=== PATIENT | female | born 1980 | race Caucasian/White ===

== ENCOUNTER 2020-10-16 09:37 | Day surgery (SDC) | payer BC ==
--- NOTE | 2020-10-16 08:53 | HP ---
DATE OF SURGERY: 10/16/2020 HISTORY OF PRESENT ILLNESS: The patient is a 40 year-old with infection left breast and persist, failed to heal with antibiotic treatment. She desires excision of ruptured cyst or of other etiology is unclear. PAST MEDICAL HISTORY: Diabetes, hypertension, hypercholesterolemia. PAST SURGICAL HISTORY: Laparoscopic cholecystectomy. section. Abscess of other breast in 2008. MEDICATIONS: Vascepa, Lexapro, Farxiga, hydrochlorothiazide, Lopid, Ozempic, Bactrim. ALLERGIES: ASPIRIN. PENICILLIN. FAMILY HISTORY: Heart disease, hypertension, diabetes. SOCIAL HISTORY: Half pack per day smoker, occasional alcohol use denies abuse. REVIEW OF SYSTEMS: Fourteen systems reviewed. No chest pain or palpitations. Other systems negative or noncontributory as above and per preadmission questionnaire. PHYSICAL EXAMINATION: GENERAL: No acute distress. HEENT: Sclerae nonicteric. NECK: No JVD. CHEST: Equal excursion, nonlabored breathing. CVS: Regular rate and rhythm. ABDOMEN: Soft. No peritoneal signs. EXTREMITIES: No significant edema. NEURO: Alert, oriented, moving extremities symmetrically. PSYCH: Appropriate mood and affect. IMPRESSION: Left breast ruptured cyst site or other etiology. I feel she would benefit from excision. The patient did have bilateral mammogram and targeted ultrasound with question whether of ruptured cyst site, will proceed with excisional biopsy left breast ruptured cyst site or abscess as an outpatient.
[~2020-10-16 09:37] MED LIST: Lactated Ringers 1,000 ML IV ONE; Sensorcaine 0.25% 10 ML ONE; XYLOCAINE 1% HCL 20 ML MDV ONE
[2020-10-16] MEDS ORDERED: CEFAZOLIN 2 GM-D5W BAG** 2 GM/50 ML ML IV SCH (10:00)
[2020-10-16] MEDS ORDERED: CEFAZOLIN 2 GM-D5W BAG** 2 GM/50 ML ML IV ONE (10:02)
[2020-10-16] MEDS ORDERED: Lactated Ringers 1,000 ML IV ONE (10:03)
[2020-10-16] MEDS: Lactated Ringers 1,000 ML IV SCH (10:08)
[2020-10-16] MEDS ORDERED: DIPRIVAN 200 MG/20 ML IV ONE ×2 (11:31→12:17)
[2020-10-16] MEDS ORDERED: Versed 2 MG/2 ML Injection ONE (11:32)
[2020-10-16 13:48] VITALS: BP 115/63; PULSE 64; O2SAT 100
--- NOTE | 2020-10-17 11:01 | OP ---
SURGERY DATE/TIME: 10/16/2020 1146 PREOPERATIVE DIAGNOSIS: Persistent infection left breast, question ruptured cyst site, failed conservative management, need for excision. POSTOPERATIVE DIAGNOSIS: Persistent infection left breast, question ruptured cyst site, failed conservative management, need for excision. PROCEDURE: Incisional biopsy left breast ruptured cyst site approximately 3.5 cm with margins. SURGEON: Dr. Km Baez. ANESTHESIA: General. ESTIMATED BLOOD LOSS: Minimal. INDICATIONS: As noted above. Risks and benefits explained in detail and not limited to and consent obtained. Site had been marked and confirmed with the patient in the preoperative holding area. DESCRIPTION OF PROCEDURE AND FINDINGS: The patient is taken to the operating room. MAC anesthesia introduced. Prepped and draped in usual sterile fashion. After official time out and no disagreement with the planned procedure, in field pattern around the indurated area beneath the nipple/areolar area about 7:00 position. Incising spinal shape fashion and excision taken down to more normal appearing skin. Dissection carried down to subcutaneous tissue. It was then evident that there was much larger granulation cavity extending up towards the lower half of the nipple/areolar area. The specimen was about 3.5 cm, passed off for pathology. Again, nipple/areolar area granulation and/or material was carefully peeled off the nipple/areolar complex with some pinpoint cautery for hemostasis. Again, this was a ruptured cyst site. There was no visible cyst wall material left. Copious amount of irrigation irrigating clear. The specimen sent off for pathology. The wound was then closed with interrupted 3-0 Vicryl in the subcu and deep dermis. Skin closed with 4-0 Vicryl leaving an opening in the center portion where 0.25 inch Iodoform packing was directed up towards the cavity area to be gradually advanced out over the next few days, 0.5 cm a day until out. Steri-Strips and sterile dressing applied. The patient tolerated the procedure well. There were no immediate complications. Findings discussed with the family out in the waiting area.
== END 2020-10-16 13:35 | disposition home or self-care (01) ==
LOC: SDC 09:37
PROVIDERS: ATTEND Surgery
DX: N60.82 Other benign mammary dysplasias of left breast (principal); E11.9 Type 2 diabetes mellitus without complications; I10 Essential (primary) hypertension; Z79.899 Other long term (current) drug therapy
CPT/HCPCS: 82947; 84703; J0690; J2250; J2704

== ENCOUNTER 2024-02-10 20:31 | Emergency (ER) | payer OTHER ==
[2024-02-10 20:58] VITALS: TEMP 98.4
[2024-02-10 21:45] LABS: BASOPHIL % 0.8 % (0.1-1.2); Eosinophil % 8.4 % (0.7-5.8); Eosinophil (Absolute #) 1.04 x10^3/uL (0.04-0.36); Hematocrit 41.4 % (34.1-44.9); Hemoglobin 14.1 g/dL (11.2-15.7); IMMATURE GRAN # 0.03 x10^3u/L (0.001-0.031); IMMATURE GRAN % 0.2 % (0.001-0.429); Lymphocyte (Absolute #) 2.23 x10^3/uL (1.18-3.74); Lymphocytes % 18.1 % (19.3-51.7); Mean Cell Volume 89.8 fL (79.4-94.8); Mean Corpuscular Hemoglobin 30.6 pg (25.6-32.2); Mean Corpuscular Hgb Concent. 34.1 g/dL (32.2-35.5); Mean Platelet Volume 10.7 fL (9.4-12.3); Monocyte (Absolute #) 0.73 x10^3/uL (0.24-0.86); Monocytes % 5.9 % (4.7-12.5); Neutrophil % 66.6 % (34.0-71.1); Platelet Count 259 x10^3/uL (182-369); Red Blood Count 4.61 x10^6/uL (3.93-5.22); Red Cell Distribution Width 12.6 % (11.7-14.4); White Blood Count 12.3 x10^3/uL (3.98-10.04)
--- NOTE | 2024-02-10 21:48 | ERPHSYRPT ---
- History of Present Illness Time Seen by Provider: 02/10/24 20:45 Source: patient Exam Limitations: no limitations Patient Subjective Stated Complaint: pt states she was treated for bronchitis but has been getting wore agan since with increased cough and shortness of breath Triage Nursing Assessment: pt alert and oriented, answers questions approp. pt ambulates into room with steady gait noted. respirations nonlabored. skin warm and dry. exp wheezes noted bilat Physician History: 43-year-old female presents to emergency department for evaluation of cough and shortness of breath. Patient states that symptoms started over a week ago. Patient states she was diagnosed with a sinusitis. Patient was treated with azithromycin and oral steroids. No significant improvement. Patient states her symptoms are now involving her lungs. No associated chest pain. No nausea vomiting or diaphoresis. Symptoms are mild to moderate in intensity. No specific worsening or improving factors. Patient voices no other complaints or concerns at this time. Portions of this note were created with voice recognition technology. There may be grammatical, spelling, punctuation or sound alike errors Timing/Duration: day(s) Severity: moderate (Week) Modifying Factors: Improves With: nothing Associated Symptoms: denies symptoms Allergies/Adverse Reactions: aspirin Allergy (Unknown, Verified 02/10/24 20:34) Penicillins Allergy (Unknown, Verified 02/10/24 20:34) Home Medications: Dapagliflozin Propanediol [Farxiga] 10 mg PO DAILY 10/10/20 [History] Gemfibrozil [Lopid] 600 mg PO DAILY 10/10/20 [History] Hydrochlorothiazide 25 mg [hydroDIURIL 25 MG] 25 mg PO DAILY 10/10/20 [History] Losartan Potassium 50 mg [Cozaar 50 MG] 50 mg PO DAILY 10/10/20 [History] Multivitamin 1 each PO DAILY 10/10/20 [History] Semaglutide [Ozempic] 0.5 mg SQ WEEKLY 10/10/20 [History] icosapent ethyL [Vascepa] 1 gm PO BID 10/10/20 [History] Escitalopram Oxalate [Lexapro] 20 mg PO DAILY 10/16/20 [History] Hx Tetanus, Diphtheria Vaccination/Date Given: Yes Hx Influenza Vaccination/Date Given: No Hx Pneumococcal Vaccination/Date Given: No Immunizations Up to Date: No Travel Risk - International Travel Have you traveled outside of the country in past 3 weeks: No - Emerging Infectious Disease Are you exhibiting symptoms associated with any current EIDs: Yes Symptoms: Cough: New Onset, Headaches/Body Aches/ - Review of Systems Constitutional: No Symptoms, No Fever, No Chills Eyes: No Symptoms Ears, Nose, & Throat: No Symptoms Respiratory: No Symptoms, No Cough, No Dyspnea Cardiac: No Symptoms, No Chest Pain, No Edema, No Syncope Abdominal/Gastrointestinal: No Symptoms, No Abdominal Pain, No Nausea, No Vomiting, No Diarrhea Genitourinary Symptoms: No Symptoms, No Dysuria Musculoskeletal: No Symptoms, No Back Pain, No Neck Pain Skin: No Symptoms, No Rash Neurological: No Symptoms, No Dizziness, No Focal Weakness, No Sensory Changes Psychological: No Symptoms Endocrine: No Symptoms Hematologic/Lymphatic: No Symptoms Immunological/Allergic: No Symptoms All Other Systems: Reviewed and Negative - Past Medical History Pertinent Past Medical History: Yes Neurological History: No Pertinent History ENT History: No Pertinent History Cardiac History: High Cholesterol, Hypertension Respiratory History: No Pertinent History Endocrine Medical History: Diabetes Type II Musculoskeletal History: No Pertinent History GI Medical History: Gallbladder Disease History: No Pertinent History Psycho-Social History: No Pertinent History Female Reproductive Disorders: Other Other Medical History: hx breast abcess,clog milk duct with mastitis - Past Surgical History Past Surgical History: Yes Neuro Surgical History: No Pertinent History Cardiac: No Pertinent History Respiratory: No Pertinent History Gastrointestinal: Cholecystectomy Genitourinary: No Pertinent History Musculoskeletal: No Pertinent History Female Surgical History: Section Other Surgical History: bilat breast abcess excision. - Female History Hx Last Menstrual Period: 3-4 wks Hx Now: No - Social History Smoking Status: Current every day smoker How long have you smoked: 20 Exposure to second hand smoke: No Drug Use: none - Social Determinants of Health Will the patient participate in the screening: Yes Do you worry about a steady place to live?: No Do you have any problems with any of the following?: No known problems In the past 12 months,have you had to go without utilities?: No Transportation Issues: No Has anyone in your support network made you feel unsafe?: No Have you or anyone in your house had to go without enough: No - Nursing Vital Signs Nursing Vital Signs: Initial Vital Signs Temperature 98.4 F 02/10/24 20:34 Pulse Rate 98 H 02/10/24 20:34 Respiratory Rate 18 02/10/24 20:34 Blood Pressure 146/86 02/10/24 20:34 O2 Sat by Pulse Oximetry 97 02/10/24 20:34 Pain Scale Pain Intensity 5 - Physical Exam General Appearance: no apparent distress, alert Eye Exam: PERRL/EOMI, eyes nml inspection Ears, Nose, Throat Exam: normal ENT inspection, TMs normal, pharynx normal, moist mucous membranes Neck Exam: normal inspection, non-tender, supple, full range of motion Respiratory Exam: normal breath sounds, airway intact, diminished breath sounds, rhonchi, No respiratory distress Cardiovascular Exam: regular rate/rhythm, normal heart sounds, normal peripheral pulses Gastrointestinal/Abdomen Exam: soft, normal bowel sounds, No tenderness, No mass Back Exam: normal inspection, normal range of motion, No CVA tenderness, No vertebral tenderness Extremity Exam: normal inspection, normal range of motion, pelvis stable Neurologic Exam: alert, oriented x 3, cooperative, normal mood/affect, sensation nml, No motor deficits Skin Exam: normal color, warm, dry, No rash Lymphatic Exam: No adenopathy SpO2 Interpretation: normal SpO2: 94 O2 Delivery: Room Air - Course Nursing assessment & vital signs reviewed: Yes EKG Interpreted by Me: RATE (74), Sinus Rhythm, NORMAL AXIS, NORMAL INTERVALS, NORMAL QRS - Radiology Exams Chest X-ray Interpretation: Teleradiologist Report (Right lower lobe opacity) Ordered Tests: Active Orders 24 hr Category Date Time Status Supervisor Fitting STAT Care 02/10/24 21:15 Active EKG-ER Only STAT Care 02/10/24 21:14 Active IV Insertion STAT Care 02/10/24 21:14 Active Pulse Oximetry (ED) STAT Care 02/10/24 21:14 Active CHEST 1 VIEW (PORTABLE) Stat Exams 02/10/24 22:08 Completed BLOOD CULTURE Stat Lab 02/10/24 21:30 Received CBC W DIFF Stat Lab 02/10/24 21:21 Completed CMP Stat Lab 02/10/24 21:21 Completed CULTURE,URINE Stat Lab 02/10/24 23:00 Received D-DIMER QUANTITATIVE Stat Lab 02/10/24 21:21 Completed HCG QUALITATIVE, SERUM Stat Lab 02/10/24 21:30 Completed Lactic Acid Stat Lab 02/10/24 21:45 Completed MAGNESIUM Stat Lab 02/10/24 21:21 Completed MONO SCREEN Stat Lab 02/10/24 21:30 Completed TROPONIN Q4H Lab 02/10/24 21:21 Completed TROPONIN Q4H Lab 02/11/24 01:15 Ordered TROPONIN Q4H Lab 02/11/24 05:15 Ordered UA W/RFX UR CULTURE Stat Lab 02/10/24 23:00 Completed Respiratory Therapy Assessment DAILY RT 02/11/24 00:07 Active Medication Summary Discontinued Medications Generic Name Dose Route Start Last Admin Trade Name Freq PRN Reason Stop Dose Admin Albuterol/Ipratropium 3 ml 02/10/24 23:43 02/11/24 00:03 Ipratropium/Albuterol Sulfate 3 Ml Ampul.Neb IH 02/10/24 23:44 3 ml STAT ONE Administration Albuterol/Ipratropium Confirm 02/10/24 23:57 Ipratropium/Albuterol Sulfate 3 Ml Ampul.Neb Administered 02/10/24 23:58 Dose 3 ml IH .STK-MED ONE Methylprednisolone Sodium 0 mg 02/10/24 23:43 02/11/24 00:00 Succinate 125 mg/ Sterile IV 02/10/24 23:44 125 mg Water 2 ml STAT ONE Administration Methylprednisolone Sodium Succinate Confirm 02/10/24 23:49 Methylprednis Sod Succ 125 Mg/2 Ml Vial Administered 02/10/24 23:50 Dose 125 mg .ROUTE .STK-MED ONE Methylprednisolone Sodium Succinate Confirm 02/10/24 23:59 Methylprednis Sod Succ 125 Mg/2 Ml Vial Administered 02/11/24 00:00 Dose 125 mg .ROUTE .STK-MED ONE Sterile Water Confirm 02/10/24 23:49 Water For Injection,Sterile 10 Ml Vial Administered 02/10/24 23:50 Dose 10 ml IJ .STK-MED ONE Sterile Water Confirm 02/10/24 23:59 Water For Injection,Sterile 10 Ml Vial Administered 02/11/24 00:00 Dose 10 ml IJ .STK-MED ONE Lab/Rad Data: Laboratory Result Diagrams 02/10/24 21:21 02/10/24 21:21 Laboratory Results 02/10/24 02/10/24 02/10/24 Range/Units 23:00 21:45 21:30 WBC (3.98-10.04) x10^3/uL RBC (3.93-5.22) x10^6/uL Hgb (11.2-15.7) g/dL Hct (34.1-44.9) % MCV (79.4-94.8) fL MCH (25.6-32.2) pg MCHC (32.2-35.5) g/dL RDW (11.7-14.4) % Plt Count (182-369) x10^3/uL MPV (9.4-12.3) fL Gran % (34.0-71.1) % Immature Gran % (Auto) (0.001-0.429) % Nucleat RBC Rel Count (0.00-0.2) % Eos # (Auto) (0.04-0.36) x10^3/uL Immature Gran # (Auto) (0.001-0.031) x10^3u/L Absolute Lymphs (auto) (1.18-3.74) x10^3/uL Absolute Monos (auto) (0.24-0.86) x10^3/uL Absolute Nucleated RBC (0.00-0.012) x10^3u/L Lymphocytes % (19.3-51.7) % Monocytes % (4.7-12.5) % Eosinophils % (0.7-5.8) % Basophils % (0.1-1.2) % Absolute Granulocytes (1.56-6.13) x10^3/uL Basophils # (0.01-0.08) x10^3/uL D-Dimer (0.0-0.50) mg/L Sodium (135-145) mmol/L Potassium (3.5-5.1) mmol/L Chloride (98-107) mmol/L Carbon Dioxide (22-30) mmol/L Anion Gap (5-15) MEQ/L BUN (7-17) mg/dL Creatinine (0.52-1.04) mg/dL Estimated GFR ML/MIN Glucose (74-106) mg/dL Lactic Acid 1.9 (0.4-2.0) Calcium (8.4-10.2) mg/dL Magnesium (1.6-2.3) mg/dL Total Bilirubin (0.2-1.3) mg/dL AST (14-36) U/L ALT (0-35) U/L Alkaline Phosphatase (38-126) U/L Troponin I (0.000-0.033) ng/mL Serum Total Protein (6.3-8.2) g/dL Albumin (3.5-5.0) g/dL Serum HCG, Qual NEGATIVE (NEGATIVE) Urine Color Yellow (Yellow) Urine Appearance Clear (Clear) Urine pH 5.0 (4.6-8.0) Ur Specific [place] 1.020 (1.005-1.030) Urine Protein Negative (Negative) Urine Glucose (UA) Negative (Negative) mg/dL Urine Ketones Trace A (Negative) Urine Blood Moderate A (Negative) Urine Nitrite Negative (Negative) Urine Bilirubin Negative (Negative) Urine Urobilinogen 0.2 (0.2) mg/dL Ur Leukocyte Esterase Trace A (Negative) U Hyaline Cast (Auto) NONE SEEN (0-2) /LPF Urine Microscopic RBC 6-10 A (0-5) /HPF Urine Microscopic WBC 3-5 (0-5) /HPF Ur Epithelial Cells Rare (None Seen) /HPF Urine Bacteria Rare A (None Seen) /HPF Urine Culture Reflexed YES (NO) Monoscreen NEGATIVE (NEGATIVE) Influenza Type A Ag (NEGATIVE) Influenza Type B Ag (NEGATIVE) RSV (PCR) (NEGATIVE) SARS-CoV-2 (PCR) (NEGATIVE) Group A Strep Antibody (NEGATIVE) 02/10/24 02/10/24 02/10/24 Range/Units 21:25 21:21 21:21 WBC (3.98-10.04) x10^3/uL RBC (3.93-5.22) x10^6/uL Hgb (11.2-15.7) g/dL Hct (34.1-44.9) % MCV (79.4-94.8) fL MCH (25.6-32.2) pg MCHC (32.2-35.5) g/dL RDW (11.7-14.4) % Plt Count (182-369) x10^3/uL MPV (9.4-12.3) fL Gran % (34.0-71.1) % Immature Gran % (Auto) (0.001-0.429) % Nucleat RBC Rel Count (0.00-0.2) % Eos # (Auto) (0.04-0.36) x10^3/uL Immature Gran # (Auto) (0.001-0.031) x10^3u/L Absolute Lymphs (auto) (1.18-3.74) x10^3/uL Absolute Monos (auto) (0.24-0.86) x10^3/uL Absolute Nucleated RBC (0.00-0.012) x10^3u/L Lymphocytes % (19.3-51.7) % Monocytes % (4.7-12.5) % Eosinophils % (0.7-5.8) % Basophils % (0.1-1.2) % Absolute Granulocytes (1.56-6.13) x10^3/uL Basophils # (0.01-0.08) x10^3/uL D-Dimer 0.30 (0.0-0.50) mg/L Sodium (135-145) mmol/L Potassium (3.5-5.1) mmol/L Chloride (98-107) mmol/L Carbon Dioxide (22-30) mmol/L Anion Gap (5-15) MEQ/L BUN (7-17) mg/dL Creatinine (0.52-1.04) mg/dL Estimated GFR ML/MIN Glucose (74-106) mg/dL Lactic Acid (0.4-2.0) Calcium (8.4-10.2) mg/dL Magnesium (1.6-2.3) mg/dL Total Bilirubin (0.2-1.3) mg/dL AST (14-36) U/L ALT (0-35) U/L Alkaline Phosphatase (38-126) U/L Troponin I < 0.012 (0.000-0.033) ng/mL Serum Total Protein (6.3-8.2) g/dL Albumin (3.5-5.0) g/dL Serum HCG, Qual (NEGATIVE) Urine Color (Yellow) Urine Appearance (Clear) Urine pH (4.6-8.0) Ur Specific [place] (1.005-1.030) Urine Protein (Negative) Urine Glucose (UA) (Negative) mg/dL Urine Ketones (Negative) Urine Blood (Negative) Urine Nitrite (Negative) Urine Bilirubin (Negative) Urine Urobilinogen (0.2) mg/dL Ur Leukocyte Esterase (Negative) U Hyaline Cast (Auto) (0-2) /LPF Urine Microscopic RBC (0-5) /HPF Urine Microscopic WBC (0-5) /HPF Ur Epithelial Cells (None Seen) /HPF Urine Bacteria (None Seen) /HPF Urine Culture Reflexed (NO) Monoscreen (NEGATIVE) Influenza Type A Ag NEGATIVE (NEGATIVE) Influenza Type B Ag NEGATIVE (NEGATIVE) RSV (PCR) NEGATIVE (NEGATIVE) SARS-CoV-2 (PCR) NEGATIVE (NEGATIVE) Group A Strep Antibody NOT DETECTED (NEGATIVE) 02/10/24 02/10/24 Range/Units 21:21 21:21 WBC 12.3 H (3.98-10.04) x10^3/uL RBC 4.61 (3.93-5.22) x10^6/uL Hgb 14.1 (11.2-15.7) g/dL Hct 41.4 (34.1-44.9) % MCV 89.8 (79.4-94.8) fL MCH 30.6 (25.6-32.2) pg MCHC 34.1 (32.2-35.5) g/dL RDW 12.6 (11.7-14.4) % Plt Count 259 (182-369) x10^3/uL MPV 10.7 (9.4-12.3) fL Gran % 66.6 (34.0-71.1) % Immature Gran % (Auto) 0.2 (0.001-0.429) % Nucleat RBC Rel Count 0.0 (0.00-0.2) % Eos # (Auto) 1.04 H (0.04-0.36) x10^3/uL Immature Gran # (Auto) 0.03 (0.001-0.031) x10^3u/L Absolute Lymphs (auto) 2.23 (1.18-3.74) x10^3/uL Absolute Monos (auto) 0.73 (0.24-0.86) x10^3/uL Absolute Nucleated RBC 0.00 (0.00-0.012) x10^3u/L Lymphocytes % 18.1 L (19.3-51.7) % Monocytes % 5.9 (4.7-12.5) % Eosinophils % 8.4 H (0.7-5.8) % Basophils % 0.8 (0.1-1.2) % Absolute Granulocytes 8.20 H (1.56-6.13) x10^3/uL Basophils # 0.10 H (0.01-0.08) x10^3/uL D-Dimer (0.0-0.50) mg/L Sodium 141 (135-145) mmol/L Potassium 4.4 (3.5-5.1) mmol/L Chloride 106 (98-107) mmol/L Carbon Dioxide 25 (22-30) mmol/L Anion Gap 14.4 (5-15) MEQ/L BUN 8 (7-17) mg/dL Creatinine 0.78 (0.52-1.04) mg/dL Estimated GFR 96.6 ML/MIN Glucose 95 (74-106) mg/dL Lactic Acid (0.4-2.0) Calcium 10.1 (8.4-10.2) mg/dL Magnesium 1.7 (1.6-2.3) mg/dL Total Bilirubin 0.40 (0.2-1.3) mg/dL AST 31 (14-36) U/L ALT 24 (0-35) U/L Alkaline Phosphatase 63 (38-126) U/L Troponin I (0.000-0.033) ng/mL Serum Total Protein 7.2 (6.3-8.2) g/dL Albumin 4.4 (3.5-5.0) g/dL Serum HCG, Qual (NEGATIVE) Urine Color (Yellow) Urine Appearance (Clear) Urine pH (4.6-8.0) Ur Specific [place] (1.005-1.030) Urine Protein (Negative) Urine Glucose (UA) (Negative) mg/dL Urine Ketones (Negative) Urine Blood (Negative) Urine Nitrite (Negative) Urine Bilirubin (Negative) Urine Urobilinogen (0.2) mg/dL Ur Leukocyte Esterase (Negative) U Hyaline Cast (Auto) (0-2) /LPF Urine Microscopic RBC (0-5) /HPF Urine Microscopic WBC (0-5) /HPF Ur Epithelial Cells (None Seen) /HPF Urine Bacteria (None Seen) /HPF Urine Culture Reflexed (NO) Monoscreen (NEGATIVE) Influenza Type A Ag (NEGATIVE) Influenza Type B Ag (NEGATIVE) RSV (PCR) (NEGATIVE) SARS-CoV-2 (PCR) (NEGATIVE) Group A Strep Antibody (NEGATIVE) - Progress Progress: improved Progress Note: 43-year-old female presents to our ED for evaluation of a cough. Patient completed a course of antibiotics Z-Arpit and steroids, Medrol Dosepak. No improvement. Patient is a diabetic. Laboratory workup reveals a leukocytosis. D-dimer negative. No indication for CTA chest. Patient received Solu-Medrol and a DuoNeb. Symptoms improved. Patient states she feels much better. Chest x-ray ordered. There is a prolonged wait for the chest x-ray. Patient requested discharge as she did not want to wait. Patient's daughter and family are at bedside. Patient will be discharged home. A prescription for prednisone and albuterol inhaler provided. We advised patient that we will keep an eye out for the chest x-ray. If there is a significant finding we will call her at home and call in a prescription/antibiotic if indicated. Vital stable. We will discharge patient as per her request. She voices no other complaints or concerns at this time. Portions of this note were created with voice recognition technology. There may be grammatical, spelling, punctuation or sound alike errors Complexity of problem addressed is moderate acute complicated. No critical care time. Complex of data reviewed and analyzed is moderate. Test ordered chest reviewed results analyzed and correlated clinically with history and physical ex am. Risk of complication and or risk of morbidity/mortality of patient management is moderate. Prescription for prednisone and albuterol inhaler forwarded to patient's pharmacy. Vital stable. Time spent to discharge patient is approximately 10 minutes. Plan of care established for shared decision making. No social determinants of health present to impede follow-up. Portions of this note were created with voice recognition technology. There may be grammatical, spelling, punctuation or sound alike errors 02/11/24 00:52 Counseled pt/family regarding: lab results, diagnosis, need for follow-up, rad results - Departure Departure Disposition: Home Clinical Impression: Leukocytosis, Cough, Pneumonia Condition: Stable Critical Care Time: No Referrals: RAJ MOLINA, WALL MAN [Primary Care Provider] - Follow up/PCP as directed Instructions: Shortness of Breath (Dyspnea) (DC) Additional Instructions: Discharge/Care Plan VANDANA ORO was seen on 02/11/24 in the Emergency Room. The patient was counseled regarding Diagnosis,Lab results, Imaging studies, need for follow up and when to return to the Emergency Room. Prescriptions given: Discharge Note I have spoken with the patient and/or caregivers. I have explained the patient's condition, diagnosis and treatment plan based on the information available to me at this time. I have answered the patient's and/or caregiver's questions and addressed any concerns. The patient and/or caregivers have as good understanding of the patient's diagnosis, condition and treatment plan as can be expected at this point. The vital signs have been stable. The patient's condition is stable and appropriate for discharge from the emergency department. The patient will pursue further outpatient evaluation with the primary care physician or other designated or consulting physician as outlined in the d ischarge instructions. The patient and/or caregivers are agreeable to this plan of care and follow-up instructions have been explained in detail. The patient and/or caregivers have received these instruction. The patient/and or caregivers are aware that any significant change in condition or worsening of symptoms should prompt an immediate return to this or the closest emergency department or call 911. Prescriptions: Prednisone 10 mg [Deltasone 10 mg] 40 mg PO DAILY 3 Days #12 tablet Levofloxacin [Levaquin 500 MG Tablet] 500 mg PO DAILY 7 Days #7 tablet Albuterol 8 gm Mdi Hfa [Ventolin Hfa MDI] 8 gm IH Q4H 7 Days #1 inhaler
[2024-02-10 21:59] LABS: ALBUMIN 4.4 g/dL (3.5-5.0); ANION GAP 14.4 MEQ/L (5-15); BILIRUBIN,TOTAL 0.4 mg/dL (0.2-1.3); Calcium 10.1 mg/dL (8.4-10.2); Creatinine 1 0.78 mg/dL (0.52-1.04); EST GLOMERULAR FILTRATION RATE 96.6 ML/MIN; MAGNESIUM 1.7 mg/dL (1.6-2.3); Potassium 4.4 mmol/L (3.5-5.1); Total Protein 7.2 g/dL (6.3-8.2)
[2024-02-10 22:00] LABS: HCG SERUM TEST NEGATIVE (NEGATIVE)
[2024-02-10 22:10] LABS: Group A Strep NOT DETECTED (NEGATIVE)
[2024-02-10 22:21] LABS: INFLUENZA A NEGATIVE (NEGATIVE); INFLUENZA B NEGATIVE (NEGATIVE); RESPIRATORY SYNCTIAL VIRUS NEGATIVE (NEGATIVE); SARS-CoV-2 Xpert Express NEGATIVE (NEGATIVE)
[2024-02-10 23:44] VITALS: O2SAT 94
[2024-02-10 23:44] LABS: Appearance Clear (Clear); Bacteria Rare /HPF (None Seen); Bilirubin Negative (Negative); Blood Moderate (Negative); Epithelial Cells Rare /HPF (None Seen); Glucose, Urine Negative (Negative); Hyaline Casts NONE SEEN /LPF (0-2); Ketones Trace (Negative); Leukocyte Esterase Trace (Negative); Nitrite Negative (Negative); Protein,Urine Dip Negative (Negative); Urobilinogen 0.2 mg/dL (0.2)
[2024-02-10] MEDS ORDERED: solu-MEDROL ONE ×2 (23:49→23:59)
[2024-02-10] MEDS ORDERED: Sterile H2O 10 ml IJ ONE ×2 (23:49→23:59)
[2024-02-10] MEDS ORDERED: DUONEB 0.5-3 MG/3 ml Neb IH ONE (23:57)
[2024-02-11] MEDS: solu-MEDROL 125 MG, Sterile H2O 10 ml 2 ML IV ONE
[2024-02-11] MEDS: DUONEB 0.5-3 MG/3 ml Neb IH ONE (00:03)
--- NOTE | 2024-02-11 00:59 | XRAY ---
CLINICAL HISTORY: cough COMPARISON: None. TECHNIQUE: Radiograph of chest was acquired. FINDINGS: Ill-defined opacities noted in the right lower zone in paracardiac region. Rest of the lungs are clear and well-expanded with no pulmonary infiltrate. No pleural effusion is detected. The cardiomediastinal silhouette is within normal limits. No acute osseous abnormality. IMPRESSION: 1. Ill-defined opacities noted in the right lower zone in paracardiac region. This could be secondary to basal congestion, however, possibility of infective etiology cannot be ruled out. Suggested clinical/lab correlation. Electronically Signed by: Malcom Paniagua MD. (02/11/2024 00:54:23 EST)
[2024-02-11] MEDS ORDERED: Levofloxacin 250MG Tablet ONE (01:08)
[2024-02-11] MEDS: Levofloxacin 250MG Tablet PO ONE (01:09)
[2024-02-11 01:41] VITALS: BP 132/88; PULSE 89; RESP 16
== END 2024-02-11 01:22 | disposition home or self-care (01) ==
LOC: ED 20:31
DX: J18.9 Pneumonia, unspecified organism (principal); R05.9 Cough, unspecified; D72.829 Elevated white blood cell count, unspecified
CPT/HCPCS: 0241U; 36415; 71045; 80053; 81001; 83605; 83735; 84484; 84703; 85025; 85379; 86308; 87040; 87086; 87651; 93005; 93041; 94640; 94760; 96374; 99285; 99284; J2919; A9270-GY